=== PATIENT | female | born 1995 | race Caucasian/White ===

== ENCOUNTER 2018-03-26 13:09 | Emergency (ER) | payer OTHER ==
[2018-03-26 13:51] VITALS: RESP 18; TEMP 98.5
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
[2018-03-26 16:06] VITALS: BP 131/70; PULSE 62
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
== END 2018-03-26 18:08 | disposition home or self-care (01) ==
LOC: EC 13:09
DX: Z04.1 Encounter for examination and observation following transport accident (principal); V49.40XA Driver injured in collision with unspecified motor vehicles in traffic accident, initial encounter; Y92.410 Unspecified street and highway as the place of occurrence of the external cause
CPT/HCPCS: 72072; 72100; 73030; 73080; 73090; 73130; 72125; 70450; 99284; L0120